=== PATIENT | female | born 1990 | race Caucasian/White ===

== ENCOUNTER 2017-10-07 11:04 | Day surgery (SDC) | payer BC ==
[2017-10-04 12:19] LABS: BASOPHILS # (AUTO) 0.03 x10^3/uL (0-0.1); BASOPHILS % (AUTO) 1 % (0-1); EOSINOPHILS # (AUTO) 0.11 x10^3/uL (0-0.4); EOSINOPHILS % (AUTO) 2 % (1-7); LYMPHOCYTES # (AUTO) 2.04 x10^3/uL (1-3.4); LYMPHOCYTES % (AUTO) 35 % (22-44); MD NO; MEAN CORPUSCULAR HEMOGLOBIN 30.9 pg (27.0-34.8); MEAN CORPUSCULAR HGB CONC 34.2 g/dL (32.4-35.8); MEAN CORPUSCULAR VOLUME 90.3 fL (80-100); MEAN PLATELET VOLUME 8.5 fL (7.4-10.4); MONOCYTES # (AUTO) 0.45 x10^3/uL (0.2-0.8); MONOCYTES % (AUTO) 8 % (2-9); NEUTROPHILS # (AUTO) 3.28 x10^3/uL (1.8-6.8); NEUTROPHILS % (AUTO) 56 % (42-75); PLATELET COUNT 174 x10^3/uL (130-400); RED BLOOD COUNT 4.53 x10^6/uL (3.82-5.3); RED CELL DISTRIBUTION WIDTH 12.8 % (9.6-15.2)
[~2017-10-07] VITALS: Ht 162.6 cm; Wt 66.0 kg
[~2017-10-07 11:04] MED LIST: FENTANYL PF 100 MCG/2ML ONE; MIDAZOLAM 1 MG/ML, 2ML ONE; NONE PER PT
[2017-10-07] MEDS ORDERED: ACETAMINOPHEN 500 MG TABLET ONE ×2 (11:07→12:50)
[2017-10-07] MEDS ORDERED: GABAPENTIN 300 MG CAPSULE ONE ×2 (11:07→12:50)
[2017-10-07] MEDS ORDERED: LACTATED RINGERS 1,000 ML IV SCH (11:13)
[2017-10-07] MEDS ORDERED: BUPIVACAINE/PF-EPI 0.25% 1:200K ONE (12:26)
[2017-10-07] MEDS ORDERED: FENTANYL PF 250 MCG/5ML ONE (12:56)
[2017-10-07] MEDS ORDERED: MIDAZOLAM 1 MG/ML, 2ML ONE (12:56)
[2017-10-07] MEDS ORDERED: PROPOFOL 10 MG/ML, 20ML ONE (12:58)
[2017-10-07] MEDS ORDERED: ROCURONIUM 10MG/ML,5ML ONE (12:58)
[2017-10-07] MEDS ORDERED: MIDAZOLAM 1 MG/ML, 2ML IV PRN (13:00)
[2017-10-07] MEDS ORDERED: EPHEDRINE 50 MG/ML, 1ML IM PRN (13:00)
[2017-10-07] MEDS ORDERED: SCOPOLAMINE PATCH, 1.5MG PATCH.TD72 TD PRN (13:00)
[2017-10-07] MEDS ORDERED: METOCLOPRAMIDE 5 MG/ML, 2ML IV PRN (13:00)
[2017-10-07] MEDS ORDERED: PROMETHAZINE 25 MG/ML, 1ML IV PRN (13:00)
[2017-10-07] MEDS ORDERED: OXYcodone 5 MG/5 ML ORAL.SOL UDC PO PRN (13:00)
[2017-10-07] MEDS ORDERED: ONDANSETRON 2MG/ML, 2ML IV PRN (13:00)
[2017-10-07] MEDS ORDERED: ALBUTEROL/IPRATROPIUM 2.5MG/0.5MG, 3 ML NPPB PRN (13:00)
[2017-10-07] MEDS ORDERED: HYDROmorphone 1 MG/ML, 1ML IV PRN (13:00)
[2017-10-07] MEDS ORDERED: MEPERIDINE/PF 25MG/0.5ML IVPush PRN (13:00)
[2017-10-07] MEDS ORDERED: FENTANYL PF 100 MCG/2ML IV PRN (13:00)
[2017-10-07] MEDS ORDERED: DEXAMETHASONE 4 MG/ML, 1ML ONE (13:54)
[2017-10-07] MEDS ORDERED: GLYCOPYRROLATE 0.2MG/1ML, 5ML ONE ×2 (13:54→15:19)
[2017-10-07] MEDS ORDERED: KETOROLAC 30 MG/1 ML ONE (13:54)
[2017-10-07] MEDS ORDERED: ONDANSETRON 2MG/ML, 2ML ONE (13:54)
[2017-10-07] MEDS ORDERED: SILVER NITRATE STICK TP ONE (14:07)
[2017-10-07] MEDS ORDERED: MEPERIDINE/PF 50 MG/ML ONE (14:20)
[2017-10-07] MEDS ORDERED: OXYcodone 5 MG/5 ML ORAL.SOL UDC ONE (14:37)
[2017-10-07] MEDS ORDERED: FENTANYL PF 100 MCG/2ML ONE (14:37)
[2017-10-07] MEDS ORDERED: NEOSTIGMINE 1 MG/ML, 10ML ONE (15:19)
== END 2017-10-07 16:35 ==
LOC: OUT 11:04
PROVIDERS: ATTEND Obstetrics & Gynecology
DX: N94.6 Dysmenorrhea, unspecified (principal); N83.8 Other noninflammatory disorders of ovary, fallopian tube and broad ligament; N30.10 Interstitial cystitis (chronic) without hematuria; N94.10 Unspecified dyspareunia; G43.909 Migraine, unspecified, not intractable, without status migrainosus; R30.0 Dysuria; Z98.890 Other specified postprocedural states
CPT/HCPCS: 36415; 58662; 84703; 85025; 88112; 88305; J1100; J1885; J2175; J2250; J2405; J2704; J2710; J3010; J3490; J7120